=== PATIENT | male | born 1965 | race African-American/Black ===

== ENCOUNTER 2023-03-24 10:12 | Day surgery (SDC) | payer OTHER ==
[~2023-03-24 10:12] MED LIST: Iopamidol-M 300 61% 15 ML VIAL ONE; Lidocaine 1% PF 5 ML VIAL ONE; Sodium Bicarbonate 2.5 MEQ/5 ML VIAL ONE
[2023-03-24 10:18] VITALS: BP 123/79; TEMP 96.6
[2023-03-24 10:20] VITALS: BMI 28.8
[2023-03-24] MEDS ORDERED: FLU VACC QS2023-24(6MOS UP)/PF 60 MCG/0.5 ML SYRINGE IM ONE (10:30)
== END 2023-03-24 11:55 | disposition home or self-care (01) ==
LOC: CSHRAD 10:12
PROVIDERS: ATTEND Neurological Surgery
PROC: B02BYZZ Computerized Tomography (CT Scan) of Spinal Cord using Other Contrast (ICD-10-PCS; principal; 2023-03-24)
DX: M50.30 Other cervical disc degeneration, unspecified cervical region (principal); M54.12 Radiculopathy, cervical region
CPT/HCPCS: 62302; 72126